=== PATIENT | male | born 1965 | race Caucasian/White ===

== ENCOUNTER 2017-12-22 18:06 | Emergency (ER) | payer SELFPAY ==
[2017-12-22 18:23] VITALS: TEMP 98.3; O2SAT 97
[2017-12-22] MEDS ORDERED: Albuterol 0.083% Inhal Sol (2.5 mg/3 mL) UD IH STA (19:12)
[2017-12-22] MEDS ORDERED: Albuterol-Ipratrop 3 mg / 0.5 (3 ml) UD IH STA (19:12)
[2017-12-22] MEDS ORDERED: Albuterol 0.083% Inhal Sol (2.5 mg/3 mL) UD ONE (19:36)
[2017-12-22] MEDS ORDERED: Albuterol-Ipratrop 3 mg / 0.5 (3 ml) UD ONE (19:45)
[2017-12-22 19:59] LABS: BASO # 0.1 K/uL (0.0-0.2); EOS # 0.3 K/uL (0.0-0.7); EOS % 2.6 % (0.0-4.0); HEMOGLOBIN 13.7 g/dL (12.0-18.0); LYMPH # 2.7 K/uL (1.0-4.3); LYMPH % 27.8 % (20.0-40.0); MEAN CELL VOLUME 86.2 fL (80.0-94.0); MEAN CORPUSCULAR HEMOGLOBIN 29.4 pg (27.0-31.0); MEAN CORPUSCULAR HGB CONC 34.1 g/dL (33.0-37.0); MEAN PLATELET VOLUME 7.2 fL (7.2-11.7); MONO # 0.7 K/uL (0.0-0.8); MONO % 7.1 % (0.0-10.0); NEUT # 5.9 K/uL (1.8-7.0); NEUT % 61.5 % (50.0-75.0); RBC 4.67 Mil/uL (4.40-5.90); RED CELL DISTRIBUTION WIDTH 13.3 % (11.5-14.5); WHITE BLOOD COUNT 9.5 K/uL (4.8-10.8)
--- NOTE | 2017-12-22 19:59 | C.PDOC ---
History Of Present Illness 52 year old male presents to the ED for evaluation of chest congestion, chest tightness, cough productive of bloody sputum which began 5 days ago. Patient also reports fever, chills and night sweats. Patient states he experiences these symptoms every year. He has not taken any medication for symptoms and denies upper respiratory symptoms and weight loss. Time Seen by Provider: 12/22/17 18:55 Chief Complaint (Nursing): Chest Pain History Per: Patient History/Exam Limitations: no limitations Onset/Duration Of Symptoms: Days (5) Current Symptoms Are (Timing): Still Present Quality: Tightness Additional History Per: Patient Past Medical History Reviewed: Historical Data, Nursing Documentation, Vital Signs Vital Signs: Last Vital Signs Temp 98.3 F 12/22/17 18:21 Pulse 83 12/22/17 18:21 Resp 19 12/22/17 18:21 BP 155/91 H 12/22/17 18:21 Pulse Ox 97 12/22/17 20:41 - Medical History PMH: No Chronic Diseases Surgical History: No Surg Hx Family History: States: Unknown Family Hx - Social History Hx Alcohol Use: No Hx Substance Use: No - Immunization History Hx Tetanus Toxoid Vaccination: No Hx Influenza Vaccination: No Hx Pneumococcal Vaccination: No Review Of Systems Constitutional: Positive for: Fever, Sweats. Negative for: Weight loss Respiratory: Positive for: Cough, Sputum (bloody ), Other (chest congestion and tightness ) Physical Exam - Physical Exam Appears: Non-toxic, No Acute Distress Skin: Normal Color, Warm, Dry Head: Atraumatic, Normacephalic Eye(s): bilateral: Normal Inspection Nose: Normal, No Discharge Oral Mucosa: Moist Neck: Supple Chest: Symmetrical, No Deformity, No Tenderness Cardiovascular: Rhythm Regular, No Murmur Respiratory: No Rales, Wheezing (on expiration), Other (diffusely dimished breath sounds with scattered rhonchi. cough noted ) Extremity: Normal ROM, Capillary Refill (less than 2 seconds ) Neurological/Psych: Oriented x3, Normal Speech, Normal Cognition ED Course And Treatment - Laboratory Results Result Diagrams: 12/22/17 19:55 12/22/17 19:55 Lab Interpretation: No Acute Changes ECG: Interpreted By Me ECG Rhythm: Sinus Rhythm ECG Interpretation: No Acute Changes O2 Sat by Pulse Oximetry: 97 (on RA) Pulse Ox Interpretation: Normal - Radiology CXR: Interpreted by Me CXR Interpretation: Yes: No Acute Disease Progress Note: Bloodwork, CXR, and EKG ordered and reviewed. Albuterol INH and Duoneb INH administered. Reevaluation Time: 20:43 Reassessment Condition: Improved (Lungs clear with much improved aeration and no wheezing.) Disposition Counseled Patient/Family Regarding: Studies Performed, Diagnosis, Need For Followup, Rx Given - Disposition Referrals: [facility] [Outside] Disposition: HOME/ ROUTINE Disposition Time: 20:44 Condition: IMPROVED Prescriptions: Albuterol HFA [Ventolin HFA 90 mcg/actuation (8 g)] 2 puff IH [id number] PRN #1 inhaler PRN Reason: Wheezing Azithromycin [Z-Darci] 250 mg PO DAILY #6 tab Instructions: Acute Bronchitis, Wheezing Forms: [employer] (Amharic) Print Language: [place] - Clinical Impression Clinical Impression: Acute bronchitis with bronchospasm - Scribe Statement The provider has reviewed the documentation as recorded by the Scribe (Yajaira Mooney) Provider Attestation: All medical record entries made by the Scribe were at my direction and personally dictated by me. I have reviewed the chart and agree that the record accurately reflects my personal performance of the history, physical exam, medical decision making, and the department course for this patient. I have also personally directed, reviewed, and agree with the discharge instructions and disposition.
[2017-12-22 20:11] LABS: ALBUMIN 4.2 g/dL (3.5-5.0); ALT/SGPT 29 U/L (21-72); AST/SGOT 16 U/L (17-59); BLOOD UREA NITROGEN 17 mg/dL (9-20); CALCIUM 9.4 mg/dl (8.6-10.4); GFR AFRICAN-AMERICAN > 60; GFR NON-AFRICAN AMERICAN > 60
[2017-12-22 21:29] VITALS: BP 153/96; PULSE 80; RESP 18
--- NOTE | 2017-12-23 08:07 | RAD ---
Chest x-ray single frontal view History: Shortness of breath. Comparison: None available. Findings: Mild venous congestion. Bilateral hilar prominence. Mild patchy increased markings at the left lung base. Mild cardiomegaly. Degenerative changes in the spine. Impression: Mild venous congestion. Bilateral hilar prominence. Mild patchy increased markings at the left lung base. Mild cardiomegaly.
--- NOTE | 2017-12-24 11:30 | CARD ---
APPROVED REPORT EKG Measurement Heart [id number] <Conclusion> Normal sinus rhythm LVH by voltage - may be normal variant Borderline ECG
== END 2017-12-22 21:27 | disposition home or self-care (01) ==
LOC: C.ER 18:06
DX: J20.9 Acute bronchitis, unspecified (principal)